=== PATIENT | female | born 2000 | race Caucasian/White ===

== ENCOUNTER 2025-05-29 23:50 | Emergency (ER) | payer OTHER, SELFPAY ==
[2025-05-29 23:57] VITALS: BP 139/79; PULSE 103; RESP 18; TEMP 36.9; O2SAT 100; BMI 26.9
--- NOTE | 2025-05-29 23:58 | ECG_ITS ---
APPROVED REPORT Exam: Resting ECG HR:88 bpm ECG Measurements Heart Rate 88 AXES NM 128 P 66 QRSd 80 QRS 85 QT 338 T 48 QTc 384 Conclusion SINUS RHYTHM WITH SINUS ARRHYTHMIA NORMAL ECG Electronically signed by : JOHN SCHUMACHER, 05/30/2025 07:05:56
--- NOTE | 2025-05-30 00:06 | XR_ITS ---
PROCEDURE INFORMATION: Exam: XR Chest Exam date and time: 05/30/2025 1:07 AM Age: 24 years old Clinical indication: Pain; Chest pressure; Additional info: Low chest pain TECHNIQUE: Imaging protocol: Radiologic exam of the chest. Views: 2 views. COMPARISON: CR XR CHEST 2V 10/12/2019 6:49 AM FINDINGS: Lungs: Unremarkable. No consolidation. Pleural spaces: Unremarkable. No pleural effusion. No pneumothorax. Heart/Mediastinum: Unremarkable. No cardiomegaly. Vasculature: Unremarkable. Bones/joints: Unremarkable. IMPRESSION: No acute findings.
[2025-05-30] MEDS: ACETAMINOPHEN 500MG TAB 1000 MG PO (00:08)
--- NOTE | 2025-05-30 00:08 | HMH.EDGENADL ---
Discharge Plan Disposition Patient Disposition: Home, Self-Care Condition: Good Prescriptions Prescriptions: No Action phenazopyridine [Pyridium] 100 mg tablet 100 mg PO TID PRN (Reason: pain) 0 Days Qty: 6 0RF amoxicillin 500 mg capsule 500 mg PO Q12H 10 Days Qty: 20 0RF Referrals Follow up/Referrals: Provider,Referral, [Primary Care Provider, Medical] - See instructions Activity Restrictions/Add. Instructions Additional Instructions/Restrictions: You were evaluated in the ER and are believed to be appropriate for discharge at this time. Take Tylenol and ibuprofen if needed for pain, do not exceed the recommended dose on the bottle. Drink water and eat a small snack each time you take these medications to avoid side effects. You can continue taking a decongestant or an [id number] antihistamine like Zyrtec or Xyzal. Make an appointment with your primary care doctor for reevaluation in 1 to 2 days. Return to the ER with any new, worsening, or otherwise concerning symptoms. Clinical Impressions Clinical Impression: Chest pain Print Language Print Language: [place] Discharge ED Provider: Courtney Hazel Adult HPI General Chief complaint: PAIN Stated complaint: pain when breathing Time Seen by Provider: 05/29/25 23:55 Mode of Arrival: Ambulatory Source of Information: Patient Description of Symptoms (Recalled from ER Triage Doc. by RN): pt reports pain in the lower ribs bilaterally with deep inspriration, pt reports she was sick one week ago and has since has been feeling pain History of Present Illness HPI narrative: 24-year-old female presents to the ER complaining of bilateral lower rib pain with deep inspiration. Patient reports upper respiratory type illness 1 week ago reporting congestion for just a few days and stating most of her symptoms have since resolved but the discomfort around her low chest has persisted. She states it is worse when bending over. No nausea, vomiting, or diarrhea. She denies fevers or chills. She denies feeling short of breath. She also states she has only had a mild, dry cough, nothing productive. She took ibuprofen once today and has also been taking a decongestant occasionally. Denies alcohol or illicit drug use, no daily medications, no history of blood clot, no cardiac history. No swelling in the feet or legs. Related Data Previous Rx's ?Medication ?Instructions ?Recorded amoxicillin 500 mg capsule 500 mg PO Q12H 10 days #20 caps 10/08/20 phenazopyridine 100 mg tablet 100 mg PO TID PRN pain 6 doses #6 10/08/20 (Pyridium) tabs Allergies Allergy/AdvReac Type Severity Reaction Status Date / Time No Known Allergies Allergy Verified 10/08/20 18:06 [facility] Disclaimer: The information contained in this section may have been updated after the patient was seen, as this information can be updated by other users. Social History Smoking Status: Never smoker alcohol intake: never substance use type: denies use current occupational status: employed and student Travel in the last 8 weeks?: None household members: family housing: house Other Medical History Have you received the Flu Vaccine for this season: No Have you received the Pneumonia Vaccine: No ROS Obtained: Yes Systems reviewed as appropriate & no additional complaints except as documented Per HPI Physical Exam General General appearance: alert and in no apparent distress Head Head exam: atraumatic and normocephalic Eye Eye exam: Present PERRL and EOMI ENT ENT exam: Present mucous membranes moist Neck Neck exam: Present normal inspection and full ROM Chest Chest inspection: Present symmetric chest wall rise and tenderness (bilateral lower ribs) Respiratory Respiratory exam: Present normal lung sounds bilaterally and other (100% on RA); Absent respiratory distress, wheezes or stridor Cardiovascular Cardiovascular exam: Present regular rate (Heart rate 88-100 during exam) and normal rhythm Abdominal Exam Abdominal exam: Present soft and tenderness (mild epigastric but no rebound or guarding); Absent distention, guarding or rebound Extremities Exam Extremities exam: Present full ROM and normal capillary refill; Absent tenderness, edema or calf tenderness Neurological Exam Neurological exam: Present alert and oriented X3; Absent motor sensory deficit Psychiatric Psychiatric exam: Present normal affect and normal mood Skin Skin exam: Present warm and dry Medical Decision Making Medical Records Medical records reviewed: Yes I reviewed the patient's medical records. Screening: Per USPSTF and CDC recommendations, given the prevalence of disease in our region, it is our hospital?s policy to screen for HIV and viral Hepatitis for all patients aged 18 and over and those with ongoing risk factors. Juancarlos Inquiry Pt receiving controlled substance: No Vital Signs: 05/29/25 23:57 Temperature 98.5 F Temperature Source Oral Pulse Rate [Right] 103 H Respiratory Rate 18 Blood Pressure [Right Arm] 139/79 Blood Pressure Mean [Right Arm] 99 02 Sat by Pulse Oximetry 100 Oxygen Delivery Method Room Air Lab Data Lab Results 05/30/25 01:03: Urine Color Yellow, Urine Appearance Clear, Urine pH 5.5, Ur Specific [place] 1.010, Urine Protein Negative, Urine Glucose (UA) Negative, Urine Ketones Negative, Urine Blood Trace-l, Urine Nitrate Negative, Urine Bilirubin Negative, Urine Urobilinogen 0.2, Ur Leukocyte Esterase Trace, Urine RBC Occasional, Ur Squamous Epith Cells 20-50, Urine Bacteria 1+, Urine HCG, Qual Negative Orders (Tests/Meds): ED MEDICATIONS Discontinued Medications Generic Name Dose Route Start Last Admin Trade Name Freq PRN Reason Stop Dose Admin Acetaminophen 1,000 mg 05/30/25 00:06 05/30/25 00:08 Acetaminophen 500mg Tab PO 05/30/25 00:07 1,000 mg ONCE ONE Administration ORDERS Category Date Time Status CXR 2 view (NOT portable) [XR chest 2V] Stat Exams 05/30/25 00:06 Taken POCUS Point of Care (ER Only) Stat Exams 05/30/25 00:22 Completed Urinalysis and Microscopic Stat Lab 05/30/25 01:03 Completed Urine , HCG Qual. Stat Lab 05/30/25 01:03 Completed Medical Decision Narrative: In summary, this 24 year old female with no reported chronic medical conditions presents to the emergency department today with a band of pain around her lower ribs. On initial evaluation patient is hemodynamically stable, afebrile, she does have tenderness around the lower ribs/upper abdomen with no rebound or guarding, lungs clear bilaterally saturating well on room air, no other acute abnormalities on exam. Differential diagnosis includes but is not limited to ACS, PE, pneumonia, pneumothorax, costochondritis, myalgias due to recent illness, pericardial effusion, pericarditis, among other. I recommended laboratory workup including hematologic and serum labs as well as chest x-ray and EKG as initial workup to the patient. She is adamantly refusing labs at this time stating she has severe anxiety about needles and her only real concern was ruling out pneumonia though she is not having cough. I discussed at length that I have low suspicion for pneumonia because she does not have cough or fever and her lungs are clear, and explained that I would like to rule out more morbid conditions with additional workup. She continues to refuse hematologic/serum labs. She is agreeable to chest x-ray, ultrasound and is going to provide urine sample for test. She is oriented, reasonable, and able to make this decision at this time. She understands the risks of missing one of these more dangerous conditions. GISELLA Arevalo at bedside during this discussion. ECG personally interpreted demonstrates sinus rhythm, rate 88, normal axis, normal [place] and QTc, no STEMI. Patient received Tylenol for treatment. [id number] ultrasound personally performed interpreted does not demonstrate acute cardiac abnormality, see procedure note for details. No pericardial effusion. Labs personally reviewed demonstrate urine hCG negative. UA without infection XR personally interpreted demonstrates no acute intrathoracic abnormality, see radiology read for final interpretation. On reassessment patient is well-appearing and resting comfortably. Vitals stable. She is still refusing additional lab workup despite my recommendations. She is stable and appropriate for discharge at this time since she does not want any additional workup. I gave her recommendations on continued symptomatic monitoring and management, close follow-up with her PCP, and strict return precautions for the ER. She indicated understanding and the patient was discharged in stable condition. Procedures Miscellaneous Procedure Procedure Performed: Limited Cardiac Ultrasound Indication: Chest pain Identified cardiac views: -Cardiac parasternal long axis -Cardiac parasternal short axis -Cardiac apical [id number] able to be obtained secondary to poor acoustic windows -Cardiac subxiphoid Findings: Cardiac activity present with no gross wall motion abnormality, no pericardial effusion, no right heart Impression: - Cardiac activity present with no gross wall motion abnormality, no pericardial effusion, no right heart strain Images were saved to permanent archive The study was technically adequate CPT: 52702 This study was performed by me, and I personally interpreted all images/videos. Based on my clinical judgement, these images were adequate and did not necessitate further imaging. Critical Care Critical Care Time Critical Care Time: No
[2025-05-30 01:11] LABS: Microscopic, Urine URINE MICROSCOPIC (MICROSCOPIC)
[2025-05-30 01:13] LABS: Bilirubin,Urine Negative (Negative); Color,Urine YELLOW (Yellow); Glucose,Urine (UA) Negative (Negative); Ketones,Urine Negative (Negative); Leukocyte Esterase,Urine TRACE (Negative); PH,Urine 5.5 (5.0-8.5); Protein,Urine Negative (Negative); Specific Gravity, Urine 1.010 (1.005-1.030); Urobilinogen,Urine 0.2 EU/dl (0.2)
[2025-05-30 01:16] LABS: Urine Pregnancy, HCG Qual. Negative (Negative)
[2025-05-30 01:21] LABS: Bacteria,Urine 1+ /lpf; RBC,Urine Occasional #/hpf (0-3); Squamous Epithelial Cell,Urine 20-50 #/hpf (0-5)
[2025-05-30 01:26] VITALS: BP 118/81; PULSE 78; RESP 17; TEMP 36.8; O2SAT 98
== END 2025-05-30 01:31 | disposition home or self-care (01) ==
PROVIDERS: Emergency Provider Emergency Medicine
DX: R07.89 Other chest pain (principal)
CPT/HCPCS: 71046; 81001; 81025; 93005; 99283; 99285